=== PATIENT | female | born 1955 | race Caucasian/White ===

== ENCOUNTER → 2020-09-25 | Outpatient (CLI) | payer OTHER ==
[~2020-09-25] MED LIST: ACCUNEB 0.0.63 MG/3 INH; B12,B-12,B 12500 MC1 PO; CYMBALTA60 M1 PO; FERROUS SULFAT325 MG PO; HYDROCODONE BIT1 T11 PO; LEVAQUIN750 MG PO; NEURONTIN800 MG PO; OMEPRAZOLE10 MG PO; PRILOSEC20 MG PO; PRILOSEC40 M1 PO; VENLAFAXINE HCL25 MG PO; VENTOLIN 02.5 MG/3 M INH; ZOFRAN ODT4 MG SL
== END | disposition home or self-care (01) ==
LOC: COVID19 14:30
PROVIDERS: ATTEND Physician Assistant Medical
DX: J06.9 Acute upper respiratory infection, unspecified (principal); Z20.822 Contact with and (suspected) exposure to COVID-19